=== PATIENT | female | born 1990 | race Caucasian/White ===

== ENCOUNTER 2020-12-19 23:17 | Emergency (ER) | payer OTHER ==
[~2020-12-19] VITALS: Ht 160 cm; Wt 72.6 kg
[2020-12-19 23:31] VITALS: BP 112/69
--- NOTE | 2020-12-19 23:43 | NUR ---
30/F BIB SELF C/O LUMP AROUND VAIGNAL AREA, SPOTTING X 2 WEEKS. PT NOTICED LUMP TODAY. +ITCHINESS. 08/05 DISCOMFORT. DENIES ANY DYSURIA, NAUSEA, VOMITING, DIARRHEA NKDA. PMH:HPV X 12, IUD
--- NOTE | 2020-12-20 00:50 | NUR ---
Female Cash Application Representative, CECILY MARQUEZ, accompanied female patient for Pelvic Exam WITH ANSHUL FOWLER.
--- NOTE | 2020-12-20 01:14 | NUR ---
Patient discharged with v/s stable. Written and verbal after care instructions given and explained. Patient verbalized understanding. Ambulatory with steady gait. All questions addressed prior to discharge. Advised to follow up with PMD.
== END 2020-12-20 01:14 | disposition home or self-care (01) ==
LOC: MED 23:17
DX: N89.8 Other specified noninflammatory disorders of vagina (principal)
CPT/HCPCS: 99281